=== PATIENT | male | born 1955 | race Caucasian/White ===

== ENCOUNTER 2017-03-03 16:41 | Emergency (ER) | payer BC ==
[2017-03-03 17:40] LABS: URINE BILIRUBIN NEGATIVE (NEG); URINE BLOOD MODERATE (NEG); URINE GLUCOSE (UA) NEGATIVE (NEG); URINE KETONE NEGATIVE (NEG); URINE LEUKOCYTE ESTERASE NEGATIVE (NEG); URINE NITRITE NEGATIVE (NEG); URINE PROTEIN MODERATE (NEG); URINE SPECIFIC GRAVITY 1.015 (1.003-1.030)
[2017-03-03 17:41] LABS: URINE APPEARANCE HAZY; URINE COLOR YELLOW
[2017-03-03 17:49] LABS: URINE AMORPHOUS 1+; URINE EPITHELIAL CELLS RARE /[HPF] (0-10); URINE WBC 0 /[HPF] (0-5)
[2017-03-03 17:51] LABS: ANION GAP 15 mmol/L (0-20); BLOOD UREA NITROGEN 23 mg/dl (6-24); CARBON DIOXIDE-VENOUS 21 mmol/L (22-32); CHLORIDE 109 mmol/l (96-110); CREATININE 2.14 mg/dl (0.60-1.30); GLUCOSE 127 mg/dL (70-110); POTASSIUM 3.7 mmol/L (3.7-5.1); SODIUM 141 mmol/L (135-145); eGFR VALUE FOR BLACK 37 mL/Min
[2017-03-03] MEDS ORDERED: HYDROCODON-ACE1 EA16 PO (18:47)
== END 2017-03-03 19:08 ==
LOC: EDMED 16:41
PROVIDERS: Emergency Medicine
DX: N20.0 Calculus of kidney (principal)